=== PATIENT | male | born 1985 | race Hispanic/Latino ===

== ENCOUNTER 2018-06-22 08:39 | Emergency (ER) | payer OTHER | END 2018-06-22 09:50 | disposition home or self-care (01) | LOC: EDH 08:39 | DX: B34.9 Viral infection, unspecified (principal); I10 Essential (primary) hypertension; R53.1 Weakness; Z87.891 Personal history of nicotine dependence | CPT/HCPCS: 87804 ==

== ENCOUNTER 2018-09-29 09:17 | Emergency (ER) | payer OTHER ==
[2018-09-29 10:18] LABS: RAPID GROUP A STREP NEGATIVE (NEGATIVE)
== END 2018-09-29 11:02 | disposition home or self-care (01) ==
LOC: EDH 09:17
DX: J10.1 Influenza due to other identified influenza virus with other respiratory manifestations (principal)
CPT/HCPCS: 87804; 87880

== ENCOUNTER 2019-01-19 08:14 | Emergency (ER) | payer OTHER ==
[2019-01-19] MEDS ORDERED: LIDOCAINE HCL MPF 1% 5ML VIAL ONE (08:43)
== END 2019-01-19 09:25 | disposition home or self-care (01) ==
LOC: EDH 08:14
DX: L02.31 Cutaneous abscess of buttock (principal); Z72.0 Tobacco use
CPT/HCPCS: 10060; 99284; J3490

== ENCOUNTER 2021-12-25 23:07 | Emergency (ER) | payer OTHER ==
[2021-12-26] MEDS ORDERED: CEPH500B PO (00:51)
[2021-12-26 01:13] VITALS: BP 138/82
== END 2021-12-26 01:12 | disposition home or self-care (01) ==
LOC: EDH 23:07
DX: L03.115 Cellulitis of right lower limb (principal); L02.611 Cutaneous abscess of right foot; E78.00 Pure hypercholesterolemia, unspecified

== ENCOUNTER 2022-03-08 09:57 | Emergency (ER) | payer OTHER ==
[~2022-03-08] VITALS: Ht 185.4 cm; Wt 136.1 kg
[~2022-03-08 09:57] MED LIST: CEPH500B PO
[2022-03-08] MEDS ORDERED: DEXAMETHASONE SOD PHOSPHATE 4 MG/ML 1ML VIAL IM STA (10:33)
[2022-03-08] MEDS ORDERED: OSEL75 PO (10:50)
[2022-03-08 10:56] VITALS: BP 136/81
[2022-03-08] MEDS ORDERED: GUAIFENESIN-CODEINE 5 ML SYRUP PO ONE (11:00)
== END 2022-03-08 10:57 | disposition home or self-care (01) ==
LOC: EDH 09:57
DX: J10.1 Influenza due to other identified influenza virus with other respiratory manifestations (principal); E78.00 Pure hypercholesterolemia, unspecified; Z79.52 Long term (current) use of systemic steroids; Z20.822 Contact with and (suspected) exposure to COVID-19
CPT/HCPCS: 99283; 87635; 87804 ×2; 96372; J1100; C9803